=== PATIENT | male | born 1995 | race Native Hawaiian/Other Pacific Islander ===

== ENCOUNTER 2021-08-31 10:25 | Emergency (ER) | payer OTHER ==
[~2021-08-31] VITALS: Ht 182.9 cm; Wt 79.8 kg
[~2021-08-31 10:25] MED LIST: STRATTERA10 MG OR; STRATTERA60 MG OR
[2021-08-31 10:29] VITALS: TEMP 97.9
[2021-08-31] MEDS ORDERED: CLEOCIN150 MG PO (11:57)
[2021-08-31 12:26] VITALS: BP 133/76
== END 2021-08-31 12:33 | disposition home or self-care (01) ==
LOC: ED 10:25
PROC: 0HQ0XZZ Repair Scalp Skin, External Approach (ICD-10-PCS; principal; 2021-08-31)
DX: S09.8XXA Other specified injuries of head, initial encounter (principal); S01.81XA Laceration without foreign body of other part of head, initial encounter; V49.40XA Driver injured in collision with unspecified motor vehicles in traffic accident, initial encounter; Y92.89 Other specified places as the place of occurrence of the external cause
CPT/HCPCS: 80307; 90471; 90715; 96372; 99283; J1885